=== PATIENT | female | born 1985 | race Caucasian/White ===

== ENCOUNTER 2017-10-30 02:00 | Inpatient (IN) | payer MEDICAID ==
[2017-10-30] MEDS ORDERED: OXYTOCIN 30 UNITS/LR 500 ML IV ×2 (03:00)
[2017-10-30] MEDS ORDERED: METHYLERGONOVINE 0.2 MG INJ IM (03:00)
[2017-10-30] MEDS ORDERED: MISOPROSTOL 200 MCG TAB PR (03:00)
[2017-10-30] MEDS ORDERED: BUTORPHANOL 2 MG INJ IV (03:00)
[2017-10-30] MEDS ORDERED: CARBOPROST 250 MCG INJ IM (03:00)
[2017-10-30] MEDS: LACTATED RINGER'S 1,000 ML IV ×5 (03:08→16:29)
[2017-10-30 03:17] LABS: ADD MAN DIFF? NO
[2017-10-30 03:19] LABS: BASOPHILS % 0.4 % (0.0-2.0); EOSINOPHILS # 0.1 10^3/ul (0.0-0.5); EOSINOPHILS % 0.5 % (0.0-7.0); HEMATOCRIT 33.2 % (37.0-47.0); HEMOGLOBIN 10.8 g/dl (12.0-16.0); LYMPHOCYTES # 1.6 10^3/ul (0.8-2.9); MEAN CORPUSCULAR HEMOGLOBIN 29.3 pg (29.0-33.0); MEAN CORPUSCULAR HGB CONC 32.5 g/dl (32.0-37.0); MEAN PLATELET VOLUME 10.2 fl (7.4-10.4); MONOCYTE # 0.9 10^3/ul (0.3-0.9); MONOCYTES % 9.6 % (0.0-11.0); NEUTROPHIL # 6.6 10^3/ul (1.6-7.5); NEUTROPHILS % 71.4 % (39.0-77.0); NUCLEATED RED BLOOD CELLS% 0.2 /100WBC (0.0-0.0); PLATELET COUNT 222 10^3/UL (140-415); RED BLOOD COUNT 3.69 10^6/ul (4.20-5.40); RED CELL DISTRIBUTION WIDTH 14.3 % (11.5-14.5)
[2017-10-30 03:19] LABS: WHITE BLOOD COUNT 9.2 10^3/ul (4.8-10.8)
[2017-10-30] MEDS: CEFAZOLIN 2 GM/50 ML (PMX) 50 ML IVPB (03:44)
[2017-10-30 03:46] LABS: INR 0.93; PROTIME 12.5 Sec (11.9-14.9)
[2017-10-30 04:10] LABS: HEPATITIS B SURFACE ANTIGEN NEGATIVE (NEGATIVE)
[2017-10-30 05:03] LABS: HIV 1&2 ANTIBODY NEGATIVE (NEGATIVE)
[2017-10-30] MEDS ORDERED: FENTAnyl 2MCG/ML-ROPIV 0.2% 100 ML (05:36)
[2017-10-30] MEDS ORDERED: NALOXONE (0.4 MG/ML) INJ IV ×2 (06:30→07:30)
[2017-10-30] MEDS: FENTAnyl 2MCG/ML-ROPIV 0.2% 100 ML BAG EPI ×3 (06:35→18:21)
[2017-10-30] MEDS ORDERED: EPHEDrine SULFATE 50 MG/5 ML SYG (07:14)
[2017-10-30] MEDS: EPHEDrine SULFATE 50 MG/5 ML SYG IV ×2 (07:17→07:25)
[2017-10-30] MEDS: ONDANSETRON 4 MG INJ IV ×2 (07:24→15:53)
[2017-10-30] MEDS ORDERED: FENTAnyl 50 MCG/ML VIAL (07:25)
[2017-10-30] MEDS ORDERED: PHENYLephrine (100 MCG/ML) 5ML SYG (07:25)
[2017-10-30] MEDS ORDERED: DIPHENHYDRAMINE 50 MG INJ IV (07:30)
[2017-10-30] MEDS: ACYCLOVIR 400 MG TAB PO ×3 (08:30→21:16)
[2017-10-30] MEDS: OXYTOCIN 30 UNITS/LR 500 ML IV ×2 (09:46→21:29)
[2017-10-30 15:29] LABS: RAPID PLASMA REAGIN NONREACTIVE (NR)
[2017-10-30] MEDS: LIDOCAINE 1% (MPF) 30 ML INJ INJ (20:53)
[2017-10-30] MEDS: IBUPROFEN 600 MG TAB PO (21:21)
[2017-10-30] MEDS: LACTATED RINGER'S 1,000 ML IV* (23:48)
[2017-10-31] MEDS ORDERED: OXYTOCIN 30 UNITS/LR 500 ML IV
[2017-10-31] MEDS ORDERED: MAGNESIUM HYDROXIDE 30ML CUP PO
[2017-10-31] MEDS ORDERED: DIPHENHYDRAMINE 25 MG CAP PO
[2017-10-31] MEDS ORDERED: SENNA/DOCUSATE NA (8.6MG/50MG) TAB PO
[2017-10-31] MEDS ORDERED: ZOLPIDEM 5 MG TAB PO
[2017-10-31] MEDS ORDERED: CARBOPROST 250 MCG INJ IM
[2017-10-31] MEDS ORDERED: METHYLERGONOVINE 0.2 MG INJ IM
[2017-10-31] MEDS ORDERED: ACETAMINOPHEN 325 MG TAB PO
[2017-10-31] MEDS ORDERED: MISOPROSTOL 200 MCG TAB PR
[2017-10-31] MEDS: HYDROCODONE/APAP (5/325) TAB PO (00:02)
[2017-10-31] MEDS: WITCH HAZEL/GLYCERIN PAD PR (00:05)
[2017-10-31] MEDS: LANOLIN 7 GM TUBE TOP (00:06)
[2017-10-31] MEDS: BENZOCAINE 20% 56 ML SPRAY TOP (00:08)
[2017-10-31] MEDS: OXYTOCIN 30 UNITS/LR 500 ML IV (00:09)
[2017-10-31] MEDS: IBUPROFEN 800 MG TAB PO ×4 (06:00→18:06)
[2017-10-31] MEDS: LACTATED RINGER'S 1,000 ML IV* ×3 (07:48→18:51)
[2017-10-31 08:22] LABS: ADD MAN DIFF? NO
[2017-10-31 08:29] LABS: BASOPHILS % 0.3 % (0.0-2.0); EOSINOPHILS # 0.1 10^3/ul (0.0-0.5); EOSINOPHILS % 0.5 % (0.0-7.0); HEMATOCRIT 27.2 % (37.0-47.0); HEMOGLOBIN 8.9 g/dl (12.0-16.0); LYMPHOCYTES # 1.5 10^3/ul (0.8-2.9); LYMPHOCYTES % 11.2 % (15.0-51.0); MEAN CORPUSCULAR HEMOGLOBIN 29.4 pg (29.0-33.0); MEAN CORPUSCULAR HGB CONC 32.7 g/dl (32.0-37.0); MEAN CORPUSCULAR VOLUME 89.8 fl (82.0-101.0); MEAN PLATELET VOLUME 10.3 fl (7.4-10.4); MONOCYTE # 1.2 10^3/ul (0.3-0.9); NEUTROPHIL # 10.2 10^3/ul (1.6-7.5); NEUTROPHILS % 78.2 % (39.0-77.0); PLATELET COUNT 214 10^3/UL (140-415); RED BLOOD COUNT 3.03 10^6/ul (4.20-5.40); RED CELL DISTRIBUTION WIDTH 14.9 % (11.5-14.5)
[2017-10-31 10:41] LABS: RUBELLA ANTIBODY - IGG 2.15 index
[2017-10-31] MEDS: INFLUENZA VIRUS VACCINE 0.5 ML SYG IM* (16:29)
[2017-11-01] MEDS: IBUPROFEN 800 MG TAB PO ×3 (00:55→12:39)
[2017-11-01 05:56] LABS: URINE DRUG SCREEN RESULT DRUG(S) DETECTED:
[2017-11-01] MEDS: LACTATED RINGER'S 1,000 ML IV* (07:48)
[2017-11-01] MEDS: VARICELLA VACCINE LIVE/PF 1,350 UNIT/0.5 ML ML SC* (09:00)
[2017-11-01] MEDS: MEASLES,MUMPS,RUBELLA VACCINE INJ SC* (09:00)
[2017-11-01 11:13] LABS: RUBELLA ANTIBODY - IGM <20.00 AU/mL
[2017-11-01] MEDS: DIPHTH/TET/ACEL PERTUSS (ADULT) 0.5 ML VIAL IM* (12:41)
== END 2017-11-01 14:35 | disposition home or self-care (01) | DRG 775 ==
LOC: OBT 02:00 → L-D 02:05 → OBT 02:30 → L-D 02:31 → PP1 22:55
PROC: 10E0XZZ Delivery of Products of Conception, External Approach (ICD-10-PCS; principal; 2017-10-30)
DX: O80 Encounter for full-term uncomplicated delivery (principal); Z37.0 Single live birth; Z3A.38 38 weeks gestation of pregnancy
CPT/HCPCS: 62319; 76815; 80307; 85025; 85610; 85730; 86592; 86703; 86762; 86900; 86901; 87340; 90686; 90715; 90716